=== PATIENT | male | born 1990 | race American Indian/Alaskan Native ===

== ENCOUNTER 2021-01-15 14:01 | Emergency (ER) | payer OTHER ==
[2021-01-15 16:04] VITALS: BP 150/69
--- NOTE | 2021-01-18 19:12 | Electrocardiograph Report ---
[facility] Test Date: 2021-01-15 Test Time: 16:08:57 Pat Name: LAW FRANKS Department: Room: Gender: M Skin Fitter: ENA : 1990 Requested By: TONA JORDAN III Order Number: [id number] Reading MD: Blair Hernandez Measurements Intervals [place] Rate: 78 P: 66 AR: 156 QRS: 36 QRSD: 74 T: -44 QT: 344 QTc: 392 Interpretive Statements Sinus rhythm Nonspecific T abnormalities, lateral leads No previous ECG available for comparison Electronically Signed On 01-18-2021 19:11:53 EDT by Blair Hernandez
== END 2021-01-15 19:06 | disposition left against medical advice (07) ==
LOC: ED 14:01
DX: R68.84 Jaw pain (principal); R11.0 Nausea; Z53.21 Procedure and treatment not carried out due to patient leaving prior to being seen by health care provider
CPT/HCPCS: 93005